=== PATIENT | female | born 1940 | race Two or more races ===

== ENCOUNTER 2017-11-28 15:48 | Emergency (ER) | payer MEDICARE, OTHER ==
[~2017-11-28] VITALS: Ht 144.8 cm; Wt 81.8 kg
[2017-11-28] MEDS ORDERED: AMLO-511 PO (15:51)
[2017-11-28] MEDS ORDERED: METF500T6 PO (15:51)
[2017-11-28 16:30] LABS: BASOPHILS % (AUTO) 0.7 % (0.0-2.0); EOSINOPHILS % (AUTO) 1.6 % (1.0-6.0); HEMATOCRIT 36.3 % (36-46); HEMOGLOBIN 11.9 g/dL (12.0-16.0); LYMPHOCYTES # (AUTO) 1.4 K/uL (1.0-4.8); LYMPHOCYTES % (AUTO) 19.9 % (22.0-44.0); MEAN CORPUSCULAR HEMOGLOBIN 25.7 pg (26.0-34.0); MEAN CORPUSCULAR HGB CONC 32.6 G/dL (31.0-37.0); MEAN CORPUSCULAR VOLUME 79 fL (80-100); MONOCYTES # (AUTO) 0.7 K/uL (0.1-1.0); MONOCYTES % (AUTO) 9.1 % (2.0-9.0); NEUTROPHILS # (AUTO) 4.9 K/uL (1.8-7.7); NEUTROPHILS % (AUTO) 68.7 % (40.0-70.0); PLATELET COUNT (AUTO) 196 K/uL (150-450); RED BLOOD CELL COUNT(AUTO) 4.61 MIL/uL (4.00-5.20); RED CELL DISTRIBUTION WIDTH 17.7 % (11.5-14.5)
[2017-11-28 16:40] LABS: ANION GAP 8 mmol/L (8-16); CALCIUM, TOTAL 8.3 mg/dL (8.8-10.5); CARBON DIOXIDE 26 mmol/L (22-29); CHLORIDE 108 mmol/L (98-107); CREATININE 0.62 mg/dL (0.60-1.30); GLUCOSE,RANDOM 101 mg/dL (70-110); POTASSIUM 4.2 mmol/L (3.5-5.1); SODIUM SERUM 142 mmol/L (136-145); UREA NITROGEN, BLOOD 14 mg/dL (7-18)
[2017-11-28 16:43] LABS: GLOMERULAR FILTR. RATE CALC > 60 mL/min (>60)
[2017-11-28 16:49] LABS: B-TYPE NATRIURETIC PEPTIDE 236 pg/mL (0-100)
[2017-11-28 16:55] LABS: ALANINE AMINOTRANSFERASE 17 U/L (12-78); ALBUMIN 3.4 g/dL (3.4-5.0); ALKALINE PHOSPHATASE 92 U/L (46-116); ASPARTATE AMINOTRANSFERASE 16 U/L (15-37); BILIRUBIN,TOTAL 0.5 mg/dL (0.1-1.0); CREATINE KINASE, TOTAL 44 U/L (26-192); THYROID STIMULATING HORMONE 1.77 uIU/mL (0.36-3.74)
[2017-11-28 17:01] LABS: INR 0.9 (0.9-1.1); PROTHROMBIN TIME 9.9 SEC (9.4-11.6)
[2017-11-28 18:47] LABS: APPEARANCE,URINE CLEAR (CLEAR); BILIRUBIN,URINE NEGATIVE (NEGATIVE); GLUCOSE, URINE (UA) NEGATIVE (NEGATIVE); KETONES,URINE NEGATIVE (NEGATIVE); LEUKOCYTE ESTERASE ,URINE NEGATIVE (NEGATIVE); NITRATE,URINE NEGATIVE (NEGATIVE); OCCULT BLOOD,URINE NEGATIVE (NEGATIVE); PROTEIN,URINE NEGATIVE (NEGATIVE)
[2017-11-28] MEDS ORDERED: KETOROLAC TROMETHAMINE 30 MG/ML VIAL IVP ONE (19:30)
[2017-11-28 23:13] VITALS: BP 114/74
== END 2017-11-28 23:23 | disposition short-term general hospital (02) ==
LOC: EMS 15:48
DX: I48.91 Unspecified atrial fibrillation (principal); H93.12 Tinnitus, left ear; R51 Headache; I10 Essential (primary) hypertension; Z79.84 Long term (current) use of oral hypoglycemic drugs
CPT/HCPCS: 36415; 70450; 71045; 80053; 81003; 82550; 83880; 84443; 84484; 85025; 85610; 85730; 93005; 96374; 99285; J1885